=== PATIENT | male | born 1950 | race Hispanic/Latino ===

== ENCOUNTER → 2018-05-22 | Outpatient (CLI) | payer OTHER | END | disposition home or self-care (01) | LOC: OIH 13:34 | PROVIDERS: ATTEND Internal Medicine | DX: M54.5 Low back pain (principal) | CPT/HCPCS: 72100 ==

== ENCOUNTER → 2024-06-18 | Outpatient (CLI) | payer OTHER ==
--- NOTE | 2024-06-18 11:10 | HMCIMG ---
CT HEAD/BRAIN W/O CONTRAST HISTORY: Headaches COMPARISON: None TECHNIQUE: Multiple sequential axial images of the head were obtained from the base of the skull through vertex. Patient was not given contrast through intravenous route. FINDINGS: The ventricles and extraventricular CSF spaces are dilated consistent with cerebral atrophy. Nonspecific white matter changes seen. There is no midline shift, mass effect or herniation. No acute intracranial bleed is seen. There are bilateral ethmoid and sphenoid sinusitis with mucoperiosteal thickening. There is atherosclerosis. IMPRESSION: 1. No acute intracranial bleed is seen. 2. Atrophy with white matter changes. CT was performed with one or more following dose reduction techniques: automated exposure control, adjustment of the mA and kv according to patient's size, or use of a iterative reconstruction technique.
== END | disposition home or self-care (01) ==
LOC: RAH 09:17
PROVIDERS: ATTEND Internal Medicine
DX: R90.82 White matter disease, unspecified (principal); G31.89 Other specified degenerative diseases of nervous system; J32.2 Chronic ethmoidal sinusitis; J32.3 Chronic sphenoidal sinusitis
CPT/HCPCS: 70450

== ENCOUNTER → 2025-04-20 | Outpatient (CLI) | payer OTHER ==
--- NOTE | 2025-04-20 22:09 | HMCIMG ---
EXAM: XR Chest, 2 Views. CLINICAL HISTORY: 74 year old male with hypertension. COMPARISON: XR Chest dated 04/17/2025. FINDINGS: LUNGS: The lungs are clear. No consolidation. PLEURAL SPACES: No pleural effusion or pneumothorax. HEART: The heart size is normal. BONES: No acute osseous abnormality. VASCULATURE: Atherosclerotic aorta. IMPRESSION: 1. No acute cardiopulmonary pathology. /Dorothy
== END | disposition home or self-care (01) ==
LOC: RAH 08:47
PROVIDERS: ATTEND Internal Medicine
DX: I70.0 Atherosclerosis of aorta (principal); I10 Essential (primary) hypertension
CPT/HCPCS: 71046

== ENCOUNTER 2025-05-04 05:56 | Observation (INO) | payer OTHER ==
[2025-05-02 11:48] VITALS: BP 140/73; PULSE 68; RESP 15; TEMP 97.9
[2025-05-02 11:53] LABS: INR 0.97 (0.85-1.15)
--- NOTE | 2025-05-02 12:48 | EKG ---
[facility] Test Date: 2025-05-02 Test Time: 10:57:08 Pat Name: NAILA GRADY Department: [facility] Room: 403 Gender: M Utility Operator: [id number] : 1950 Requested By: CAROLINA HALE Order Number: [id number] Reading MD: Ranjan Rose Measurements Intervals [place] Rate: 70 P: 71 W[place]: 161 QRS: -46 QRSD: 100 T: 70 QT: 391 QTc: 424 Interpretive Statements Sinus rhythm Left anterior fascicular block No previous ECG available for comparison Electronically Signed On 05-05-2025 19:46:11 CDT by Ranjan Rose Please click the below link to view image of tracing.
--- NOTE | 2025-05-03 11:30 | NUR ---
RE: EKG REPORTED EKG RESULTS TO DR BURNHAM, NO NEW ORDERS RECEIVED.
[2025-05-04] VITALS (20 sets, daily range): BP systolic 113–189; BP diastolic 63–97; PULSE 67–95; RESP 14–19; TEMP 97.4–98.1; O2SAT 96
[~2025-05-04] VITALS: Ht 167.6 cm; Wt 93.2 kg
[2025-05-04] MEDS: 0.9%NACL 1000ML 1,000 ML IV ONE (06:24)
[2025-05-04] MEDS ORDERED: TRANEXAMIC ACID 1000MG/10ML ONE ×2 (06:27)
[2025-05-04] MEDS ORDERED: MIDAZOLAM HCL 1 MG/ML 2ML VIAL ONE (06:52)
[2025-05-04] MEDS ORDERED: LIDOCAINE PF 100MG/5ML (2%) SYRINGE 5ML ONE (06:52)
[2025-05-04] MEDS: SUGAMMADEX SODIUM 200 MG/2 ML VIAL IV ONE (07:00)
[2025-05-04] MEDS: TRANEXAMIC ACID 1000MG/10ML IV ONE (07:44)
[2025-05-04] MEDS ORDERED: HYDROcodone/APAP 5/325 1 TAB TABLET PO PRN (08:00)
[2025-05-04] MEDS ORDERED: CYCLOBENZAPRINE HCL 10 MG TABLET PO PRN (08:00)
[2025-05-04] MEDS ORDERED: PoTASSium chl 10% ELIXIR 20MEQ 20 MEQ/15 ML UDCUP PO PRN (08:00)
[2025-05-04] MEDS ORDERED: CALCIUM CARB 500MG PO PRN (08:00)
[2025-05-04] MEDS ORDERED: FERROUS FUMARATE 324 MG TABLET PO PRN (08:00)
[2025-05-04] MEDS ORDERED: PoTASSium chloRIDE 20MEQ ER 20 MEQ ERTAB PO PRN (08:00)
[2025-05-04] MEDS ORDERED: 0.9%NACL 1000ML 1,000 ML IV SCH (08:00)
[2025-05-04] MEDS ORDERED: GLYCOPYRROLATE 0.2 MG/ML 5 ML VIAL ONE (08:02)
[2025-05-04] MEDS ORDERED: METF-444 PO (08:04)
[2025-05-04] MEDS ORDERED: HYDR-4060 PO (08:04)
[2025-05-04] MEDS ORDERED: MELO-108 PO (08:04)
[2025-05-04] MEDS ORDERED: IRBE150T34 PO (08:04)
[2025-05-04] MEDS ORDERED: ROSU10TA72 PO (08:04)
[2025-05-04] MEDS: TRANEXAMIC ACID 1000MG/10ML IJ ONE (09:21)
--- NOTE | 2025-05-04 11:11 | OP ---
Operative Note: DATE OF PROCEDURE: 05/04/25 PREOPERATIVE DIAGNOSIS: Right knee osteoarthritis. POSTOPERATIVE DIAGNOSIS: Right knee osteoarthritis. PROCEDURE PERFORMED: Right knee total knee arthroplasty. SURGEON: Priscilla Conrad MD SCHOOL BOAT DRIVER: Jet Sandy and Albertina Santiago. ANESTHESIA: General with adductor canal block. ANESTHESIA: ALYSON Wiley. ESTIMATED BLOOD LOSS: 50cc. COMPLICATIONS: None. DRAINS: None. SPECIMENS REMOVED: resected bone. Not sent to pathology. IMPLANTS: Wiley [employer] Nephew Journey II BCS size 7 Oxinium femur, size 5 tibial base plate, 35 x 7.5 mm patella, 9 mm polyethylene STATEMENT OF MEDICAL NECESSITY: The patient is a 75-year-old male who suffers from right knee osteoarthritis failing conservative management. After discussion of the risks, benefits, and alternatives with the patient, they voluntarily agreed to undergo the aforementioned procedure. DESCRIPTION OF PROCEDURE: Patient was properly identified in the preoperative holding area. Surgical site marking was verified and surgery consent reviewed. The patient was then taken to the operating room and placed in supine position on the OR table. After induction of general anesthesia, preoperative antibiotics were given, all bony prominences were well-padded, and a well padded tourniquet was applied but not inflated at this time. The right lower extremity was then prepped and draped in usual sterile fashion. Surgical time out was done verifying correct surgery, side, site, and location to be performed. We then began the procedure by exsanguinating the limb using an Esmarch and inflating the tourniquet to 350 mmHg. At this point, we made an anterior midline incision using a 10 blade, coming down sharply the level of the fascia. Skin flaps were elevated medially and laterally. We then obtained a clean 10 blade and performed a standard medial parapatellar arthrotomy. We excised the infrapatellar fat pad. We performed our soft tissue releases off of the tibia. We transected the ACL and removed the anterior portion of the medial & lateral meniscus. We then brought the knee into hyperflexion with the patella everted. We used our entry reamer to enter the femoral canal. We then placed our intramedullary cutting guide for our distal femoral cutting block. We then performed our distal femoral osteotomy ensuring appropriate rotation and removed the bony wafer. We then removed these pins and block and then used jig 2 to size the distal femur with the after mentioned size found. We then placed our 5-in-1 cutting block in 4 degrees of external rotation and took our 5 cuts ensuring to protect the patellar tendon and the collateral ligaments. We then removed the cutting block and our bony fragments using a curved osteotome. We then placed our PCL retractor subluxating the tibia anteriorly. Using an extra medullary tibial cutting guide, we hung the block for our proximal tibial cut taking 2 mm off the more diseased portion. Prior to pinning this block in place, we ensured appropriate varus/valgus alignment and posterior slope similar to the [place] slope of the patient's knee. We then performed our proximal tibial osteotomy and removed the bony wafer using Bovie electrocautery to release any remaining soft tissue attachments. We then used our tibial sizing paddle and checked once more for varus & valgus alignment and found this to be appropriate. At this point, we pinned our tibial paddle in place. We then removed the PCL retractor and subluxated the tibia posteriorly while we placed our femoral trial component. We then finished preparing the notch with the reamer and box chisel. The notch portion of the trial femoral component was then placed. A posterior stabilized polyethylene, size 9 trial was placed. The knee was then taken through range of motion and found to have stable full range of motion. We then placed a bump under the ankle and everted the patella to perform our freehand cut of the undersurface the patella. We then sized our patella and reamed to the lug holes for this. We placed our trial patellar component and begin to take the knee through range of motion. The patella had extreme lateral tracking, and we performed a lateral release. However the patella continued to have significant lateral tracking. We adjusted our tibial component rotation and placed a towel clip to approximate the soft tissues and had slightly better patellar tracking. We therefore elected to go with the 7.5 mm thickness patellar component. At this point we began removing our trial components and punched the tibial keel prior to removing our tibial trial component. Final components were opened and cement was mixed on the back table while we injected local cocktail in the posterior capsule. We then thoroughly irrigated out the bone and dried the bony surfaces. We cemented our tibial component in place ensuring to remove excess cement and placed our trial polyethylene. We then cemented our femoral component in place once again taking time to ensure excess cement was removed leg was brought into full extension to help squeeze the excess cement from around the femoral component. We then brought the knee back in a flexion to remove this portion of the cement at this point we placed the ankle in a bump thoroughly irrigated off the patellar component and cemented our patellar component in standard fashion again removing excess cement. While we waited for the cement to cure, we thoroughly irrigated out the wound with normal saline. Once our cement had cured, we took the knee through a range of motion and found full and stable range of motion. We then elected to use the size 9 polyethylene and removed our trial polyethylene. We impacted our final polyethylene component in place in standard fashion and took the knee through a range of motion check once more. This was satisfactory so we began to repair the arthrotomy using #1 Vicryl in interrupted [id number] fashion. Subcutaneous tissue was repaired using 2-0 Vicryl. Running subcuticular 3-0 Monocryl stitch with Dermabond placed over this for the skin. We then applied a foam barrier dressing and a pressure dressing consisting of 4 x 4's fluffs and an Miles wrap. The tourniquet was then deflated. Patient was awakened from anesthesia, and they were taken to the recovery room in stable condition. PRISCILLA CONRAD MD May 04, 2025 11:11
--- NOTE | 2025-05-04 11:13 | DS ---
Discharge Summary Hospital Course Summary: The patient was admitted to the hospital postoperatively on 05/04/2025 after undergoing right total knee arthroplasty. They did well with routine postoperative pain control. They worked well with physical therapy. They developed some acute blood loss anemia but remained asymptomatic. The hospital course was otherwise uncomplicated. They were subsequently able to be discharged on postoperative day 2 once discharge arrangements were made with home health physical therapy. [employer] Laboratory Assistant(s): None Procedure(s): Right total knee arthroplasty, 05/04/2025 Assessment/Plan: ASSESSMENT: Status post right total knee arthroplasty doing well Acute blood loss anemia, asymptomatic PLAN: See discharge instructions Discharge Instructions: Begin working with home health physical therapy. Dressing may be removed 05/07/2025 and left open to air. Showers ok allowing soap and water to run over the wound. Pat dry. Do not submerge wound in tu b/pool. Do not apply ointments. Do not apply Betadine. Do not apply peroxide. Ice packs to decrease pain/swelling. Prescriptions have been sent to the pharmacy: *Britt 5/325mg 1-2 tab every 6 hours as needed for severe pain. (please call for refills) Cyclobenzaprine 5mg 1 tab every 8 hours as needed for muscle spasm pain. Gabapentin 100mg 1 tab every 8 hours (may discontinue if drowsy). Colace 100mg 1 tab orally twice a day as needed for constipation. Aspirin 325mg twice a day for 30 days to prevent blood clots. Follow up appointment scheduled on 05/26/2025 at 1:00 pm at [facility]. Home Medications: Active Scripts Hydrocodone/Acetaminophen (Hydrocodon-Acetaminophen 5-325) 5 Mg-325 Mg Tablet, 1-2 TAB PO Q6HPRN PRN for post op pain, #56 TAB 0 Refills Prov:CAROLINA HALE MD 05/06/25 Reported Medications Metformin HCl (Metformin HCl) 500 Mg Tablet, 1 TAB PO DAILY for 30 Days, #60 TAB 0 Refills 05/04/25 Hydrocodone/Acetaminophen (Hydrocodon-Acetaminophen 5-325) 5 Mg-325 Mg Tablet, 1 TAB PO QIDP PRN for pain for 30 Days, #90 TAB 0 Refills 05/04/25 Irbesartan (Irbesartan) 150 Mg Tablet, 1 TAB PO DAILY for 30 Days, #30 TAB 0 Refills 9/24/25 Meloxicam (Meloxicam) 15 Mg Tablet, 1 TAB PO DAILY for 30 Days, #30 TAB 0 Refills 05/04/25 Rosuvastatin Calcium (Rosuvastatin Calcium) 10 Mg Tablet, 1 TAB PO HS for 30 Days, #30 TAB 0 Refills 05/04/25 CAROLINA HALE MD May 04, 2025 11:13
--- NOTE | 2025-05-04 16:00 | NUR ---
ORTHO COORDINATOR: TEACHING REGARDING DVT AND PNEUMONIA PREVENTION, PAIN EXPECTATIONS AND PAIN MANAGEMENT. PATIENT IN BED. ICE PACK TO R KNEE. B SCD SLEEVES IN PLACE AND FUNCTIONING. INCENTIVE SPIROMETER AT BEDSIDE. PATIENT RETURN DEMONSTRATED PROPER USE OF INCENTIVE SPIROMETER AND VERBALIZED PROPER FREQUENCY OF USE. PATIENT RETURN DEMONSTRATED FOOT FLEXION AND EXTENSION EXERCISES, RATIONALE PROVIDED. PAIN MANAGEMENT STRATEGY DISCUSSED, PRIMARY NURSE AT BEDSIDE. ENCOURAGED PATIENT TO PERFORM SELF PAIN ASSESSMENTS AT THE MINIMUM EVERY FOUR HOURS. SET EXPECTATIONS FOR PATIENT TO SHOWER TOMORROW, RATIONALE PROVIDED. PATIENT INTENDS TO DISCHARGE HOME WITH HOME HEALTH PHYSICAL THERAPY. PATIENT FAMILIAR WITH PROCESS, HAD L TKA APPROXIMATELY 10 YEARS AGO. NO ADDITIONAL QUESTIONS OR CONCERNS.
[2025-05-04] MEDS: HYDROcodone/APAP 5/325 1 TAB TABLET PO PRN (16:16)
--- NOTE | 2025-05-04 16:17 | NUR ---
[facility] CM MET WITH PT THIS AFTERNOON, INITIAL ASSESSMENT DONE. PATIENT IS INDEPENDENT PRIOR TO SURGERY, LIVES AT HOME WITH . PATIENT VERBALIZED HE HAS A STANDARD WALKER, WHEELCHAIR, SHOWER CHAIR, GLUCOMETER, BPM. DENIES ANY OTHER EQUIPMENT/SERVICES. FEELS SAFE TO GO BACK HOME, STILL DRIVE, ABLE TO ASSIST WITH TRANSPORTATION AND NEEDS NECESSARY. DISCUSSED HOME W/HOME HEALTH FOR PT, PT AGREEABLE, CONSENT SIGNED MEGA FOR [facility]. [facility] HOME W/ ONCE APPROVED. CM TO CONTINUE TO FOLLOW UP. Addendum: 05/04/25 at 1618 by IVAN MAURICE LVN Amended: Links added.
--- NOTE | 2025-05-04 16:44 | HMCIMG ---
EXAM: CR right Knee, 2 View. CLINICAL HISTORY: S/P RT TKA SURGERY COMPARISON: None provided. FINDINGS: Subcutaneous edema and small gas within the soft tissues. Knee arthroplasty hardware in place. There is a knee joint effusion. IMPRESSION: 1. Post right total knee arthroplasty with hardware in place. 2. Knee joint effusion. 3. Subcutaneous edema and small gas within soft tissues, likely postoperative. /Proctor
--- NOTE | 2025-05-04 18:44 | NUR ---
Pt's blood pressure 152/78mmHg
[2025-05-05] VITALS: BP 149/81; PULSE 82; RESP 20; TEMP 98.2
[2025-05-05 05:05] LABS: NUCLEATED RED BLOOD CELLS 0.0 % (0.0-0.19); PLATELET COUNT (AUTO) 145.0 K/uL (130-400); RED BLOOD CELL COUNT(AUTO) 4.63 MIL/uL (4.50-6.20); RED CELL DISTRIBUTION WIDTH 12.2 % (11.0-15.5); WHITE BLOOD COUNT (AUTO) 13.7 K/uL (4.8-10.8)
[2025-05-05 05:21] LABS: CREATININE 0.9 mg/dL (0.5-1.3); GLOMERULAR FILTR. RATE CALC 89.0 mL/min (>90); GLUCOSE,RANDOM 142.0 mg/dL (70-105); SODIUM SERUM 131.0 mmol/L (136-145); UREA NITROGEN, BLOOD 17.0 mg/dL (7-18)
[2025-05-05] MEDS: ASPIRIN 325MG EC TAB PO SCH (07:57)
[2025-05-05 08:00] VITALS: BP 137/75; PULSE 70; RESP 18; TEMP 98; O2SAT 98
--- NOTE | 2025-05-05 08:06 | PN ---
Ortho postop day one. This morning the patient is awake alert and oriented. Reporting adequate pain control. He is out of bed seated in his chair enjoying his breakfast. No acute distress. Vital signs have remained stable. He is afebrile. Voiding on his own. Laboratory results reviewed. Noted to have a slight drop in sodium. Operative findings discussed with the patient. Reinforced incentive spirometry. Miles bandage has been removed from operative site and the dressing is intact. Gastrocnemius a soft nontender. Distal neurovascular exam normal. Ice is present to op-site. Pending physical therapy this morning. Anticipated discharge goal is home health/PT. Assessment: Status post right total knee arthroplasty. Hyponatremia. Plan: Continue Dr. Conrad's TKA protocol and discharge planning. Hyponatremia covered with the protocol/patient currently on NS IV. Vitals/Labs Vital Signs Date Time Temp Pulse Resp B/P (MAP) Pulse Ox O2 Delivery O2 Flow Rate FiO2 05/05/25 00:00 98.2 82 20 149/81 98 Room Air 05/04/25 20:00 0 21 Laboratory Tests 05/05/25 04:51 Medications Current Medications Cefazolin Sodium 2 gm STK-MED ONCE .ROUTE Last administered on 05/04/25at 07:43; Start 05/04/25 at 06:24; Stop 05/04/25 at 06:24; Status DC Sodium Chloride 1,000 ml @ As Directed STK-MED ONCE IV; Start 05/04/25 at 06:24; Stop 05/04/25 at 06:24; Status DC Ketorolac Tromethamine 30 mg STK-MED ONCE .ROUTE; Start 05/04/25 at 06:26; Stop 05/04/25 at 06:26; Status DC Ropivacaine 150 mg STK-MED ONCE .ROUTE; Start 05/04/25 at 06:26; Stop 05/04/25 at 06:26; Status DC Tranexamic Acid 1,000 mg STK-MED ONCE .ROUTE; Start 05/04/25 at 06:27; Stop 05/04/25 at 06:27; Status DC Tranexamic Acid 1,000 mg STK-MED ONCE .ROUTE; Start 05/04/25 at 06:27; Stop 05/04/25 at 06:27; Status DC Lidocaine HCl 100 mg STK-MED ONCE .ROUTE; Start 05/04/25 at 06:52; Stop 05/04/25 at 06:52; Status DC Midazolam HCl 2 mg STK-MED ONCE .ROUTE; Start 05/04/25 at 06:52; Stop 05/04/25 at 06:52; Status DC Propofol 200 mg STK-MED ONCE IV; Start 05/04/25 at 06:52; Stop 05/04/25 at 06:52; Status DC Rocuronium [place] 50 mg STK-MED ONCE .ROUTE; Start 05/04/25 at 06:52; Stop 05/04/25 at 06:52; Status DC Fentanyl Citrate 100 mcg STK-MED ONCE .ROUTE; Start 05/04/25 at 06:53; Stop 05/04/25 at 06:53; Status DC Ropivacaine 150 mg STK-MED ONCE .ROUTE; Start 05/04/25 at 06:55; Stop 05/04/25 at 06:55; Status DC Dexmedetomidine HCl 200 mcg STK-MED ONCE IV; Start 05/04/25 at 07:00; Stop 05/04/25 at 07:00; Status DC Acetaminophen 100 ml @ As Directed STK-MED ONCE .ROUTE; Start 05/04/25 at 07:00; Stop 05/04/25 at 07:00; Status DC Sodium Chloride 1,000 ml @ 100 mls/hr Q10H IV; Start 05/04/25 at 08:00; Stop 05/04/25 at 14:42; Status DC Polyethylene Glycol 17 gm DAILY PO Last administered on 05/05/25at 07:58; Start 05/04/25 at 09:00; Stop 06/03/25 at 08:59 Bisacodyl 10 mg DAILY PRN RC; Start 05/07/25 at 08:00; Stop 06/06/25 at 07:59 Ketorolac Tromethamine 15 mg Q6H PRN IV Last administered on 05/04/25at 13:01; Start 05/05/25 at 08:00; Stop 05/10/25 at 07:59 Ferrous Fumarate 324 mg DAILY PRN PO; Start 05/04/25 at 08:00; Stop 06/03/25 at 07:59 Ondansetron HCl 4 mg Q6H PRN IVP Last administered on 05/04/25at 17:44; Start 05/04/25 at 08:00; Stop 06/03/25 at 07:59 Calcium Carbonate 500 mg Q12H PRN PO; Start 05/04/25 at 08:00; Stop 06/03/25 at 07:59 Cefazolin Sodium 2 gm Q8H IVP Last administered on 05/04/25at 20:19; Start 05/04/25 at 13:00; Stop 05/04/25 at 21:01; Status DC Cyclobenzaprine HCl 5 mg Q8H PRN PO; Start 05/04/25 at 08:00; Stop 06/03/25 at 07:59 Gabapentin 100 mg TID PO Last administered on 05/05/25at 07:56; Start 05/04/25 at 09:00; Stop 06/03/25 at 08:59 Aspirin 325 mg DAILY PO Last administered on 05/05/25at 07:57; Start 05/05/25 at 09:00; Stop 06/04/25 at 08:59 Ketorolac Tromethamine 15 mg Q8H IV; Start 05/04/25 at 08:00; Stop 05/04/25 at 16:14; Status DC Docusate Sodium 100 mg BID PO Last administered on 05/05/25at 07:57; Start 05/04/25 at 09:00; Stop 06/03/25 at 08:59 Potassium Chloride 100 ml @ 100 mls/hr AD PRN IV; Start 05/04/25 at 08:00; Stop 06/03/25 at 07:59 Potassium Chloride 20 meq AD PRN PO; Start 05/04/25 at 08:00; Stop 06/03/25 at 07:59 Potassium Chloride 20 meq AD PRN PO; Start 05/04/25 at 08:00; Stop 06/03/25 at 07:59 Tramadol HCl 50 mg Q6H PRN PO Last administered on 05/05/25at 06:33; Start 05/04/25 at 08:00; Stop 05/09/25 at 07:59 Acetaminophen/ Hydrocodone Bitart Q4H PRN PO; Start 05/04/25 at 08:00; Stop 05/04/25 at 08:44; Status DC Dexamethasone Sodium Phosphate 10 mg STK-MED ONCE .ROUTE; Start 05/04/25 at 07:49; Stop 05/04/25 at 07:49; Status DC Ephedrine Sulfate 50 mg STK-MED ONCE .ROUTE; Start 05/04/25 at 07:56; Stop 05/04/25 at 07:56; Status DC Rocuronium [place] 50 mg STK-MED ONCE .ROUTE; Start 05/04/25 at 08:00; Stop 05/04/25 at 08:00; Status DC Glycopyrrolate 1 mg STK-MED ONCE .ROUTE; Start 05/04/25 at 08:02; Stop 05/04/25 at 08:02; Status DC Nicardipine HCl 25 mg STK-MED ONCE IV; Start 05/04/25 at 08:04; Stop 05/04/25 at 08:04; Status DC Labetalol HCl 100 mg STK-MED ONCE .ROUTE; Start 05/04/25 at 08:06; Stop 05/04/25 at 08:06; Status DC Tranexamic Acid 1,000 mg STK-MED ONCE IV Last administered on 05/04/25at 07:44; Start 05/04/25 at 07:44; Stop 05/04/25 at 08:48; Status DC Ropivacaine 150 mg STK-MED ONCE IJ Last administered on 05/04/25at 08:36; Start 05/04/25 at 08:36; Stop 05/04/25 at 08:48; Status DC Ketorolac Tromethamine 30 mg STK-MED ONCE IJ Last administered on 05/04/25at 08:36; Start 05/04/25 at 08:36; Stop 05/04/25 at 08:48; Status DC Tranexamic Acid 1,000 mg STK-MED ONCE IJ Last administered on 05/04/25at 09:21; Start 05/04/25 at 09:21; Stop 05/04/25 at 09:22; Status DC Fentanyl Citrate 100 mcg STK-MED ONCE .ROUTE; Start 05/04/25 at 09:23; Stop 05/04/25 at 09:23; Status DC Fentanyl Citrate 100 mcg STK-MED ONCE .ROUTE; Start 05/04/25 at 09:41; Stop 05/04/25 at 09:41; Status DC Acetaminophen/ Hydrocodone Bitart Q4H PRN PO Last administered on 05/04/25at 16:16; Start 05/04/25 at 16:30; Stop 05/09/25 at 16:29 Ketorolac Tromethamine 15 mg Q8H IV Last administered on 05/05/25at 07:57; Start 05/05/25 at 00:01; Stop 05/05/25 at 08:02; Status DC Hydralazine HCl 10 mg ONCE ONCE IV Last administered on 05/04/25at 17:21; Start 05/04/25 at 17:30; Stop 05/04/25 at 17:31; Status DC Hydroxyzine HCl 20 mg TID PRN PO Last administered on 05/04/25at 17:56; Start 05/04/25 at 17:30; Stop 06/03/25 at 17:29 Hydralazine HCl 20 mg STK-MED ONCE .ROUTE; Start 05/04/25 at 17:16; Stop 05/04/25 at 17:16; Status DC HARPREET RAE NP May 05, 2025 08:06
--- NOTE | 2025-05-05 08:45 | NUR ---
ORTHO COORDINATOR: REINFORCED TEACHING. PATIENT UP TO CHAIR. CURRENT PAIN 7/10. REVIEWED PAIN MANAGEMENT STRATEGY. IN REVIEW OF CHART, PATIENT HAS NOT RECEIVED PAIN MEDICATIONS SINCE YESTERDAY EVENING. REMINDED PATIENT PAIN MEDICATIONS MUST BE REQUESTED. REINFORCED EXPECTATION FOR PATIENT TO SHOWER TODAY. PATIENT VERBALIZED UNDERSTANDING TO ALL INSTRUCTIONS. 08:55 PAIN MANAGEMENT STRATEGY REVIEWED WITH PRIMARY NURSE. INFORMED CURRENT PAIN IS 7/10. PRIMARY NURSE ACKNOWLEDGED COMMUNICATION.
[2025-05-05 12:00] VITALS: BP 120/70; PULSE 71; RESP 18; TEMP 98.3
[2025-05-05 16:00] VITALS: BP 140/80; PULSE 68; RESP 18; TEMP 98.3
[2025-05-05 20:00] VITALS: BP 121/67; PULSE 69; RESP 18; TEMP 98.4
[2025-05-05] MEDS: BENZOCAINE/MENTH/CETYLPYRD CL 1 EACH LOZENGE MM PRN (21:35)
[2025-05-06] VITALS: BP 113/64; PULSE 69; RESP 18; TEMP 98.5
[2025-05-06 04:00] VITALS: BP 134/68; PULSE 79; RESP 18; TEMP 98.6
[2025-05-06 08:00] VITALS: BP 120/60; PULSE 80; RESP 18; TEMP 98.5; O2SAT 98
[2025-05-06] MEDS ORDERED: ASPI-891 PO (10:08)
[2025-05-06] MEDS ORDERED: GABA100C PO (10:08)
[2025-05-06] MEDS ORDERED: CYCL-309 PO (10:08)
[2025-05-06] MEDS ORDERED: DOCU-116 PO (10:08)
[2025-05-06] MEDS ORDERED: HYDR-4060 PO (10:08)
--- NOTE | 2025-05-06 10:45 | NUR ---
ORTHO COORDINATOR: REINFORCED TEACHING. PATIENT IN BED. PATIENT REPORTS PASSING GAS. PATIENT REPORTS PAIN CONTROLLED. PATIENT MENTALLY READY TO DISCHARGE HOME WITH HOME HEALTH. PATIENT ENCOURAGED TO CONTINUE WITH INCENTIVE SPIROMETER AFTER DISCHARGE UNTIL PRESURGERY LEVEL OF ACTIVITY ACHIEVED, TO CONTINUE PREMEDICATING PRIOR TO PHYSICAL THERAPY AND PERIODS OF HIGH ACTIVITY, TO CONTINUE FOOT FLEXION AND EXTENSION EXERCISES, AND HYDRATE. RATIONALE FOR ALL PROVIDED. PATIENT VERBALIZED UNDERSTANDING. NEXT STEPS FOR HOME HEALTH VISIT REVIEWED.
[2025-05-06 11:53] VITALS: BP 126/76; PULSE 81; RESP 18; TEMP 98.4
--- NOTE | 2025-05-06 15:26 | NUR ---
DISCHARGED patient given printed discharge paperwork, educated patient on diet, activity, follow ups, medications, signs and symptoms to report/return to ER. Answered patient questions, patient and family understood. called report to [facility] for home health services, gave report to YUMIKO Membreno
--- NOTE | 2025-05-06 16:49 | NUR ---
CM NOTE Met with pt and states he does have a walker but belongs to his , call made to also and both now requesting walker. states they currently have a standard walker doesnt belong to pt, but it is the same as the one he is currently using in the hospital. he can use it until he gets his own. she will bring walker in when she comes to pickup pt. choice letter obtained. and referral sent to [facility]. spoke to rep states she will keep an eye out for the referral and work on it on friday.
--- NOTE | 2025-05-06 21:06 | PN ---
PROGRESS NOTE PROGRESS NOTE DATE OF PROGRESS NOTE: 05/06/25 SUBJECTIVE: PATIENT IS STATUS POST SURGERY NO COMPLAINTS VITAL SIGNS Vital Signs Date Time Temp Pulse Resp B/P (MAP) Pulse Ox O2 Delivery O2 Flow Rate FiO2 05/06/25 11:53 98.4 81 18 126/76 98 Room Air 05/06/25 08:00 0 21 PHYSICAL EXAM: HEENT ATRAUMATIC NORMOCEPHALIC HEAD NECK IS SUPPLE LUNGS ARE CLEAR TO AUSCULTATION PERCUSSION HEART WAS S1-S2 HEARD ABDOMEN IS SOFT AND BENIGN EXTREMITIES NO PEDAL [facility]: Laboratory Result(s) Test 05/06/25 05:25 05/06/25 11:18 Whole Blood Glucose 120 MG/DL (70-110) 180 MG/DL (70-110) PLAN: STATUS POST ORIF POSTOPERATIVE PAIN CONTROLLED GENERALIZED ARTHRITIS SUPPORTIVE TREATMENT HYPERTENSION RESUME HOME MEDICATION WE WILL GIVE FOR DISCHARGE MEDICALLY DAR GALARZA MD May 06, 2025 21:06
[2025-05-07] MEDS ORDERED: IRBESARTAN PO SCH (09:00)
--- NOTE | 2025-05-09 17:41 | NUR ---
DC PLAN RECEIVED CALL FROM [employer] SAID THAT NEEDED FORM SIGNED. PRINTED OUT FACE SHEET AND RE FAXED TO DR HALE. WILL ALSO TRY TO SEE IF OFFICE CAN GET DR. HALE WHEN SHE COMES INTO HOSPITAL. Addendum: 05/09/25 at 1743 by ANA ROSA DICKEY RN CM Amended: Links added.
== END 2025-05-06 17:30 | disposition home health service (06) ==
LOC: DAH 05:56 → DAHIP 05:57 → 4AH 10:50
PROVIDERS: ADMIT Student in an Organized Health Care Education/Training Program; ATTEND Student in an Organized Health Care Education/Training Program
DX: M17.11 Unilateral primary osteoarthritis, right knee (principal); M25.561 Pain in right knee; E87.1 Hypo-osmolality and hyponatremia; D62 Acute posthemorrhagic anemia; I10 Essential (primary) hypertension; E78.5 Hyperlipidemia, unspecified; E11.9 Type 2 diabetes mellitus without complications; Z98.890 Other specified postprocedural states; Z79.899 Other long term (current) drug therapy
CPT/HCPCS: 85610; 85730; 84134; 86140; 36415 ×2; 93005; 87641; 64447; 27447; 96374; 96376 ×3; 96375; 82948 ×10; 73560; 97161; 97530 ×9; 80048; 85027; 97116 ×4; G0378 ×58; A4223 ×2; A4663; J3010 ×3; J3490 ×11; J1100; J7030; J2003; J0360 ×2; J2250; J2704; J2405; J1885 ×6; J2795 ×3; J0690 ×3; C1713 ×2; C1776 ×2; A4649 ×2; A4930; A6255; A5120; A4215; A4213; A4222; A4221; A4216